=== PATIENT | female | born 1980 | race American Indian/Alaskan Native ===

== ENCOUNTER 2019-01-24 05:25 | Inpatient (IN) | payer OTHER ==
[2019-01-24 05:53] VITALS: BMI 29.0
[2019-01-24 06:24] LABS: SQUAMOUS EPITHIAL 8 /hpf (0-5); URINE BACTERIA RARE (<OCC); URINE BILIRUBIN NEGATIVE (NEGATIVE); URINE BLOOD NEGATIVE (NEGATIVE); URINE CLARITY Hazy (Clear); URINE COLOR Yellow (YELLOW); URINE GLUCOSE (UA) NORMAL (Normal); URINE LEUKOCYTE ESTERASE 2+ Leu/uL (Negative); URINE PROTEIN NEGATIVE (NEGATIVE); URINE UROBILINOGEN NORMAL mg/dL (0.2-1.0)
[2019-01-24 06:31] LABS: BASO % 0.6 % (0.0-2.0); EOS # 0.1 K/uL (0.0-0.7); EOS % 1.8 % (0.0-4.0); HEMOGLOBIN 11.6 g/dL (11.0-16.0); LYMPH # 1.9 K/uL (1.0-4.3); MEAN CELL VOLUME 88.1 fL (81.0-99.0); MEAN PLATELET VOLUME 8.8 fL (7.2-11.7); MONO # 0.8 K/uL (0.0-0.8); MONO % 9.8 % (0.0-10.0); NEUT # 5.2 K/uL (1.8-7.0); NEUT % 64.8 % (50.0-75.0); RBC 3.99 Mil/uL (3.80-5.20)
[2019-01-24 06:32] LABS: ALB/GLOB RATIO 1.3 (1.0-2.1); ALBUMIN 3.5 g/dL (3.5-5.0); ALT/SGPT 9 U/L (9-52); AST/SGOT 17 U/L (14-36); BLOOD UREA NITROGEN 7 mg/dL (7-17); CALCIUM 8.5 mg/dl (8.6-10.4); GFR NON-AFRICAN AMERICAN > 60
[2019-01-24] MEDS ORDERED: Oxytocin 20 units in LR 2,000 ML IV ONE (07:19)
--- NOTE | 2019-01-24 07:22 | OBHP ---
Datetime: 01/24/2019 06:30 IP Adm Impression: Term, intrauterine ; No Active Labor; Intact Membranes IP Admit Plan: Initiate Section protocol Admit Comment, IP Provider: 38 yo female G1 with an IUP at 36.6 weeks and admitted for an scheduled Primary C/S secondary to Hx of Myomectomy and recurrent large Fibroid. Denies problems, no LOF, VB or VD. Admits to adequate FM. PMHx: Recurrent Fibroids PSHx: Myomectomy NKDA Meds: PNV Social Hx: Negative x 3 PE as noted above A/P Near Term Hx of previous Myomectomy Recurrent large Fibroid For scheduled repeat C/S NST reactive No Uterine activity VSS Will admit and prep for schedule procedure Pelvic Type - PN: Adequate Extremities - PN: Normal Abdomen - PN: Normal Back - PN: Normal Breast - PN: Not Done Lungs - PN: Normal Heart - PN: Normal Thyroid - PN: Normal Neurologic - PN: Normal HEENT - PN: Normal General - PN: Normal Presentation-Admit: Vertex FHR - Baseline A Provider: 130 Membranes, Provider: Intact Contraction Comments Provider: Irregular Gestation - Est Wks by US: 36.6 EGA AdmitDate IP: 36.6 Vital Signs Provider: Reviewed IP Chief Complaint: Scheduled Section NICHD Variability Prov Fetus A: Moderate 6-25bpm NICHD Accel Fetus A IP Provider: 10X10 FHR Category Provider Fetus A: Category I NICHD Decel Fetus A IP Provider: None Genitourinary Exam: Normal DTRs - PN: Normal
[2019-01-24] MEDS ORDERED: Morphine 1 mg/ml preservative-free Inj(Duramorph) ONE (07:29)
[2019-01-24] MEDS ORDERED: cefOXitin IV 2 gm in Dextrose 2 GM/50 ML BAG IVPB ONE (07:30)
[2019-01-24] MEDS ORDERED: Sodium Citrate/Citric Acid 15 ml Sol PO ONE (07:30)
[2019-01-24] MEDS ORDERED: Lactated Ringer's 1,000 ML IV ONE (07:30)
[2019-01-24] MEDS ORDERED: Oxytocin 10 Units/ml Inj ONE (07:37)
--- NOTE | 2019-01-24 07:41 | OBADHP ---
Datetime: 01/24/2019 06:30 Admit Comment, IP Provider: 38 yo female G1 with an IUP at 36.6 weeks and admitted for an scheduled Primary C/S secondary to Hx of Myomectomy and recurrent large Fibroid. Denies problems, no LOF, VB or VD. Admits to adequate FM. PMHx: Recurrent Fibroids PSHx: Myomectomy NKDA Meds: PNV Social Hx: Negative x 3 PE as noted above A/P Near Term Hx of previous Myomectomy Recurrent large Fibroid GBS positive, per Dr. Chan For scheduled repeat C/S NST reactive No Uterine activity VSS Will admit and prep for schedule procedure Dr. Chan aware of patient arrival Pelvic Type - PN: Adequate Extremities - PN: Normal Abdomen - PN: Normal Back - PN: Normal Breast - PN: Not Done Lungs - PN: Normal Heart - PN: Normal Thyroid - PN: Normal Neurologic - PN: Normal HEENT - PN: Normal General - PN: Normal Presentation-Admit: Vertex FHR - Baseline A Provider: 130 Membranes, Provider: Intact Contraction Comments Provider: Irregular Gestation - Est Wks by US: 36.6 Vital Signs Provider: Reviewed IP Chief Complaint: Scheduled Section NICHD Variability Prov Fetus A: Moderate 6-25bpm NICHD Accel Fetus A IP Provider: 10X10 FHR Category Provider Fetus A: Category I NICHD Decel Fetus A IP Provider: None Genitourinary Exam: Normal DTRs - PN: Normal EGA AdmitDate IP: 36.6 IP Adm Impression: Term, intrauterine ; No Active Labor; Intact Membranes IP Admit Plan: Initiate Section protocol (Annotations: Data stored by CPN on behalf of user )
[2019-01-24] MEDS ORDERED: Phenylephrine 10 mg/ml Inj ONE (08:55)
--- NOTE | 2019-01-24 09:29 | OBADHP ---
Datetime: 01/24/2019 06:30 Admit Comment, IP Provider: 38 yo female G1 with an IUP at 36.6 weeks and admitted for an scheduled Primary C/S secondary to Hx of Myomectomy and recurrent large Fibroid. Denies problems, no LOF, VB or VD. Admits to adequate FM. PMHx: Recurrent Fibroids PSHx: Myomectomy NKDA Meds: PNV Social Hx: Negative x 3 PE as noted above A/P Near Term Hx of previous Myomectomy Recurrent large Fibroid GBS positive, per Dr. Chan For scheduled repeat C/S NST reactive No Uterine activity VSS Will admit and prep for schedule procedure Dr. Chan aware of patient arrival addendum patient with brant 02/14/19.patienta 37 weeks for primary scection due to hx of myomectomy [employer] consnet obatiend and signed discussed riks of blod transfusion and hystercetomy along with other risks EGA AdmitDate IP: 37.0
--- NOTE | 2019-01-24 09:36 | PCM.OP ---
Operative Report - Operative Report Date of Surgery/Procedure: 01/24/19 Time of Surgery/Procedure: 08:06 Surgeon: JONELLE PIERRE Otr Owner Operator Truck Driver: JUAN LUIS SHEEHAN Anesthesia/Sedation: SPINAL Pre-Operative Diagnosis: Previous myomectomy, IUP at 37 weeks Post-Operative Diagnosis: same as preop Indication for Surgery: with hx of previous myomectomy Operative Findings: adhesions between uterus and omentum, uterus with multiple fibroids, adhesions between bowel and posterior surface of uterus.Viable male infant in vertex presentation; apgars 9/9 at1 and 5min of life Procedure/Operation Description: primary csection and lysis of adhesions Estimated Blood Loss: 1200 Complications: none Discharge & Condition: stable on leaving from the OR
[2019-01-24] MEDS ORDERED: Oxytocin 30 UNIT in NS 500 ml 500 ML IV ONE (10:19)
[2019-01-24] MEDS ORDERED: Acetaminophen IV 1,000 MG in Premixed IV 1 EA IV ONE (11:00)
[2019-01-24] MEDS ORDERED: Oxytocin 30 UNIT in NS 500 ml 30 UNITS/500 ML BAG IV ONE (11:30)
[2019-01-24 11:58] LABS: MEAN CORPUSCULAR HEMOGLOBIN 29.8 pg (27.0-31.0); MEAN CORPUSCULAR HGB CONC 33.5 g/dL (33.0-37.0); MEAN PLATELET VOLUME 8.8 fL (7.2-11.7); RED CELL DISTRIBUTION WIDTH 15.4 % (11.5-14.5); WHITE BLOOD COUNT 11.5 K/uL (4.8-10.8)
[2019-01-24 12:02] LABS: HEMOGLOBIN 8.9 g/dL (11.0-16.0)
[2019-01-24] MEDS: cefOXitin IV 2 gm in Dextrose 2 GM/50 ML BAG IVPB SCH ×2 (14:49→22:35)
[2019-01-24] MEDS: Simethicone 80 mg Chewtab PO SCH ×3 (14:50→21:45)
[2019-01-24] MEDS: Oxycodone/Acetaminophen 5/325 mg Tab PO PRN ×2 (14:52→21:45)
[2019-01-24] MEDS ORDERED: DiphenhydrAMINE 50 mg/ml Inj IVP STA ×2 (15:36→21:58)
[2019-01-24] MEDS ORDERED: DiphenhydrAMINE 50 mg/ml Inj ONE ×2 (15:53→22:29)
[2019-01-25 07:28] LABS: HEMOGLOBIN 7.8 g/dL (11.0-16.0); MEAN CELL VOLUME 88.6 fL (81.0-99.0); MEAN CORPUSCULAR HEMOGLOBIN 29.7 pg (27.0-31.0); MEAN CORPUSCULAR HGB CONC 33.5 g/dL (33.0-37.0); MEAN PLATELET VOLUME 8.7 fL (7.2-11.7); RBC 2.62 Mil/uL (3.80-5.20); RED CELL DISTRIBUTION WIDTH 15.3 % (11.5-14.5)
[2019-01-25 07:30] LABS: WHITE BLOOD COUNT 17.6 K/uL (4.8-10.8)
[2019-01-25] MEDS: Prenatal Multivit/Folic Acid/Iron Tab PO SCH (09:34)
[2019-01-25] MEDS: Simethicone 80 mg Chewtab PO SCH ×4 (09:34→21:23)
[2019-01-25] MEDS: Oxycodone/Acetaminophen 5/325 mg Tab PO PRN ×2 (13:16→21:22)
[2019-01-26] MEDS: Oxycodone/Acetaminophen 5/325 mg Tab PO PRN ×4 (06:32→18:26)
[2019-01-26 07:58] LABS: BASO % 0.2 % (0.0-2.0); EOS # 0.1 K/uL (0.0-0.7); EOS % 0.9 % (0.0-4.0); MONO # 1.2 K/uL (0.0-0.8)
[2019-01-26 08:19] LABS: LYMPH # 1.4 K/uL (1.0-4.3); LYMPH % 11.4 % (20.0-40.0); MEAN CELL VOLUME 88.2 fL (81.0-99.0); MEAN CORPUSCULAR HEMOGLOBIN 29.8 pg (27.0-31.0); MEAN CORPUSCULAR HGB CONC 33.8 g/dL (33.0-37.0); MEAN PLATELET VOLUME 8.5 fL (7.2-11.7); MONO % 9.6 % (0.0-10.0); NEUT # 9.8 K/uL (1.8-7.0); NEUT % 77.9 % (50.0-75.0); RBC 2.17 Mil/uL (3.80-5.20); RED CELL DISTRIBUTION WIDTH 15.7 % (11.5-14.5); WHITE BLOOD COUNT 12.5 K/uL (4.8-10.8)
[2019-01-26 08:22] LABS: HEMOGLOBIN 6.5 g/dL (11.0-16.0)
[2019-01-26] MEDS: Prenatal Multivit/Folic Acid/Iron Tab PO SCH (09:34)
[2019-01-26] MEDS: Simethicone 80 mg Chewtab PO SCH ×4 (09:34→21:22)
--- NOTE | 2019-01-26 11:47 | OBPPN ---
Datetime: 01/26/2019 09:30 PP Pain Prov: Within normal limits PP Nausea Prov: Denies PP Flatus Prov: Yes PP BM Prov: No PP Breasts Prov: Not Done PP Heart Prov: Normal PP Lungs Prov: Normal PP Abdomen/Uterus Prov: Normal PP Lochia Prov: Normal PP Vulva/Perineum Prov: Not Done PP CVA Tenderness Prov: Normal PP Extremities Prov: Abnormal PP C/S Incision Prov: Normal PP Progress Prov: Abnormal PP Comments Phys Exam Prov: Fundus firm, non-tender and below Umbilicus Incision clean, dry and intact LE's with +2/4 pitting edema No calf tenderness PP Impression Prov: Normal progression; difficulties PP Plan Prov: consult PP Progress Note Prov: Pt seen and examined per Dr. Chan's request POD # 2 S/P Primary C/S after Hx of Myomectomy in the past and several Fibroids at present Acute Blood Loss at time of Sx H_H today 6.5/ 19.1 and pt with lightheadness upon standing Will transfuse 2 Units of PRBC's and consent signed and on chart Advise to Breasfeed, Increase po water intake and Lactaton consult ordered Willl encourage ambulation after transfusion Dr. Chan aware of condition and POC IP PP Procedures: Transfusion Vital Signs Provider PP: Reviewed
[2019-01-26 15:10] VITALS: RESP 18
[2019-01-26 19:44] LABS: HEMOGLOBIN 8.6 g/dL (11.0-16.0)
--- NOTE | 2019-01-26 21:05 | OBPPN ---
Datetime: 01/26/2019 21:03 PP Pain Prov: Within normal limits PP Nausea Prov: Denies PP Flatus Prov: Yes PP BM Prov: No PP Heart Prov: Normal PP Lungs Prov: Normal PP Abdomen/Uterus Prov: Normal PP CVA Tenderness Prov: Normal PP Extremities Prov: Normal PP C/S Incision Prov: Normal PP Impression Prov: Normal progression PP Plan Prov: Continue present management PP Progress Note Prov: S-patient feels weakness at tiems but denies light headedness or dizzines O VSS Afberile Fundus firm and below umbilcius incision clean, dry and intact extremities no calf tenderness A/P Patient s/p cscetion pod 2.anemia secondary to blood loss -s/p transfusiopn of 2 units PRBS -check cbc in am -monitor closely Vital Signs Provider PP: Reviewed
[2019-01-27] MEDS: Prenatal Multivit/Folic Acid/Iron Tab PO SCH (09:20)
[2019-01-27] MEDS: Simethicone 80 mg Chewtab PO SCH ×4 (09:20→22:24)
[2019-01-27 12:45] LABS: HEMOGLOBIN 8.8 g/dL (11.0-16.0); MEAN CELL VOLUME 88.1 fL (81.0-99.0); MEAN CORPUSCULAR HEMOGLOBIN 30.5 pg (27.0-31.0); MEAN CORPUSCULAR HGB CONC 34.6 g/dL (33.0-37.0); MEAN PLATELET VOLUME 8.3 fL (7.2-11.7); RBC 2.9 Mil/uL (3.80-5.20); RED CELL DISTRIBUTION WIDTH 15.6 % (11.5-14.5)
[2019-01-27] MEDS ORDERED: Oxycodone/Acetaminophen 5/325 mg Tab PO ONE (13:41)
[2019-01-27] MEDS ORDERED: Oxycodone/Acetaminophen 5/325 mg Tab PO PRN (14:11)
[2019-01-27] MEDS ORDERED: Magnesium Citrate Oral SOL (300 ml) PO ONE (14:13)
--- NOTE | 2019-01-27 14:55 | OBPPN ---
Datetime: 01/27/2019 14:22 PP Pain Prov: Within normal limits PP Nausea Prov: Denies PP Flatus Prov: Yes PP BM Prov: No PP Breasts Prov: Not Done PP Heart Prov: Normal PP Lungs Prov: Normal PP Abdomen/Uterus Prov: Normal PP Lochia Prov: Not Done PP Vulva/Perineum Prov: Not Done PP CVA Tenderness Prov: Not Done PP Extremities Prov: Normal PP C/S Incision Prov: Normal PP Progress Prov: Normal PP Comments Phys Exam Prov: General: NAD, Comfortable Cardio: RRR, No Murmur Lungs: CTA BL, No rale/ronchi/wheeze Abdomen: Soft, Mild tendnerness in LLQ/RLQ, Uterus 3 finger breadth above umbilicus, Incision site w/ steri strip intact, No discharge/ erythema LE: Trace pitting edema BL, 2+ Distal Pulses BL, PP Impression Prov: Normal progression PP Plan Prov: Continue present management PP Progress Note Prov: Patient is a 38 year old female past medical history of recurrent ut erine fibroid status post myomectomy, status post schedule primary on 01/24 with estimated blood loss 1200 mL, status post two units transfusion, POD#3. Seen and examined at bedside this afternoon at request of Dr. Chan. No acute events reported overnight; patient reports flatus and adequately voiding urine however do es not report BM yet. Denies any fevers, chills, sob, cp, headache/ dizziness. Denies any nausea/ vom iting. Does complain of mild abdominal pain however reports her pain is improving. Reports minimal to no vaginal discharge/bleeding; only using 1 pad, ambulating well. Reports adequate hydration; breast and bottle feeding baby. VSS CBC reviewed; 8.8<8.6 Stable A/P: 38 year old female S/p Schedule C/S w/ EBL 1200cc s/p 2u transfusion Continue post operative care Encourage ambulation, hydration, breast feeding Will resume percocet 1 tab q4 prn pain H/H stable; C/w iron, stool softeners Keep incision site clean/ dry encourage ambulation and increase water po Pt request to be discharge home tomorrow and OK with Dr. Chan Patient was seen, examined, and discussed w/ attending Nataliia Mehta DO PGY1 Pt seen and examined with Dr Keenan and agree with his findings, assessment and POC IP PP Procedures: None Vital Signs Provider PP: Reviewed; Within Normal Limits
[2019-01-28] MEDS: Prenatal Multivit/Folic Acid/Iron Tab PO SCH (09:43)
[2019-01-28] MEDS: Simethicone 80 mg Chewtab PO SCH (09:44)
[2019-01-28 17:52] VITALS: BP 116/67; PULSE 86; TEMP 99.2; O2SAT 98
== END 2019-01-28 12:17 | disposition home or self-care (01) | DRG 787 ==
LOC: C.EROB 05:25 → C.4D 05:56 → C.4M 12:59
PROVIDERS: ADMIT Student in an Organized Health Care Education/Training Program; ATTEND Student in an Organized Health Care Education/Training Program
PROC: 10D00Z1 Extraction of Products of Conception, Low, Open Approach (ICD-10-PCS; principal; 2019-01-24)
PROC: 0DNW0ZZ Release Peritoneum, Open Approach (ICD-10-PCS; 2019-01-24)
PROC: 30233N1 Transfusion of Nonautologous Red Blood Cells into Peripheral Vein, Percutaneous Approach (ICD-10-PCS; 2019-01-26)
DX: O34.13 Maternal care for benign tumor of corpus uteri, third trimester (principal); D62 Acute posthemorrhagic anemia; O34.211 Maternal care for low transverse scar from previous cesarean delivery; D25.9 Leiomyoma of uterus, unspecified; O99.824 Streptococcus B carrier state complicating childbirth; O99.89 Other specified diseases and conditions complicating pregnancy, childbirth and the puerperium; N73.6 Female pelvic peritoneal adhesions (postinfective); Z37.0 Single live birth; O99.02 Anemia complicating childbirth; Z3A.37 37 weeks gestation of pregnancy